=== PATIENT | female | born 1990 | race American Indian/Alaskan Native ===

== ENCOUNTER 2019-09-04 08:29 | Emergency (ER) | payer SELFPAY ==
[2019-09-04 10:32] LABS: HCG Qualitative,Urine Negative (Negative)
[2019-09-04 10:33] LABS: Bilirubin,Urine NEG (Negative); Blood,Urine LG (Negative); Color,Urine Yellow (Yellow); Mucus,Urine 3+ /HPF; Urobilinogen,Urine < 2.0 mg/dL (<2.0)
--- NOTE | 2019-09-04 10:35 | XRay Report ---
CHEST 2 VIEWS INDICATION: MAIN: chest pain; vaginal bleeding x 2 weeks and pain to chest and shoulders. . COMPARISON: None. FINDINGS: Support devices: None. Heart: Within normal limits. Pulmonary vasculature: Normal. Lungs/pleura: No acute air space or interstitial disease. No pneumothorax. Additional findings: None. IMPRESSION: 1. Normal chest. Signer Name: Gallo Ronquillo MD Signed: 09/04/2019 10:31 AM Workstation Name: [id number]
[2019-09-04 10:37] LABS: RBC,Urine > 182.0 /HPF (0.0-6.0)
--- NOTE | 2019-09-04 10:47 | Ultrasound Report ---
PELVIC ULTRASOUND HISTORY: Vaginal bleeding COMPARISON: None. TECHNIQUE: Transverse and longitudinal images were obtained of the pelvis using transabdominal ultras ound. FINDINGS: Uterus: Normal size and echogenicity. No masses. Uterus measures 6.5 x 3.3 x 4.3 cm. Endometrium: Normal thickness measuring 8.4 mm. Right Ovary: Normal size and appearance measuring 2.2 x 1.8 x 1.8 cm. Left Ovary: Not imaged. Additional findings: No adnexal mass or free fluid. IMPRESSION: 1. Normal uterus and right ovary. 2. No left ovary identified. Signer Name: Gallo Ronquillo MD Signed: 09/04/2019 10:43 AM Workstation Name: [id number]
[2019-09-04 11:56] LABS: Basophils % (Auto) 1.1 % (0.0-1.8); Eosinophils % (Auto) 0.7 % (0.0-4.3); Hematocrit 37.9 % (30.3-42.9); Lymphocytes # (Auto) 2.1 K/mm3 (1.2-5.4); Lymphocytes % (Auto) 52.1 % (13.4-35.0); Mean Corpuscular HGB Conc 34 % (30-34); Mean Corpuscular Volume 83 fl (79-97); Monocytes # (Auto) 0.4 K/mm3 (0.0-0.8); Monocytes % (Auto) 9.6 % (0.0-7.3); Platelet Count 320 K/mm3 (140-440); Red Blood Count 4.55 M/mm3 (3.65-5.03); Red Cell Distribution Width 12.8 % (13.2-15.2)
[2019-09-04 12:06] LABS: INR 0.98 (0.87-1.13)
[2019-09-04 14:20] VITALS: BP 90/61
== END 2019-09-04 13:36 | disposition home or self-care (01) ==
LOC: ED 08:29
DX: N93.9 Abnormal uterine and vaginal bleeding, unspecified (principal); R07.89 Other chest pain; M25.512 Pain in left shoulder; M25.511 Pain in right shoulder
CPT/HCPCS: 36415; 71046; 76856; 81001; 81025; 85025; 85610; 87086; 93005; 93010

== ENCOUNTER 2019-10-02 18:36 | Emergency (ER) | payer SELFPAY ==
[2019-10-02 18:40] VITALS: BP 119/78
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
== END 2019-10-02 20:51 | disposition home or self-care (01) ==
LOC: ED 18:36
DX: S46.911A Strain of unspecified muscle, fascia and tendon at shoulder and upper arm level, right arm, initial encounter (principal); M54.2 Cervicalgia; Z79.899 Other long term (current) drug therapy; V49.49XA Driver injured in collision with other motor vehicles in traffic accident, initial encounter; Y93.89 Activity, other specified; Y92.410 Unspecified street and highway as the place of occurrence of the external cause; Y99.8 Other external cause status
CPT/HCPCS: 99281